=== PATIENT | female | born 1935 | race Caucasian/White ===

== ENCOUNTER 2018-01-14 14:58 | Emergency (ER) | payer MEDICARE ==
[~2018-01-14] VITALS: Ht 160 cm; Wt 64.9 kg
[~2018-01-14 14:58] MED LIST: ASPIRIN81 MG PO; ATORVASTATIN CA10 MG PO; AZO CRANBERRY1 EAC1 PO; BUPROPION XL150 MG PO; HYDROCHLOROTHIA25 MG PO; LEVOTHYROXINE125 MCG PO; LISINOPRIL10 MG PO; METOPROLOL TART25 MG PO; NIFEDIPINE ER30 M1 PO; RIVASTIGMINE TOP; SULFAMETHOXAZO1 EAC1 PO; [UNRECOGNIZED DRUG - OTHER] PO
--- NOTE | 2018-01-14 16:52 | Diagnostic Imaging Report ---
Exam: Tibia fibula, 2 views History: Lower leg pain, status post fall this morning Comparison: None. Findings: There is decreased bone mineralization, which limits evaluation of the bony structures.. No acute, displaced fracture or dislocation. Degenerative changes in the visualized knee joint, with chondrocalcinosis. Vascular calcifications. No soft tissue swelling. Impression: 1. Decreased mineralization, which limits evaluation of the bony structures. No acute, displaced fracture or dislocation, within the limitations of the study. Signed by: Dr. Christiano Lucas M.D. on 01/14/2018 4:48 PM
--- NOTE | 2018-01-14 16:54 | Diagnostic Imaging Report ---
Exam: Right foot series, 3 views. Clinical History: Status post fall, foot pain Comparison: None. Findings: 3 views of the right foot. There is markedly decreased bone mineralization, which limits evaluation of the bony structures. Acute, mildly displaced fracture of the ulnar aspect of the base of the first toe proximal phalanx, with likely intra-articular extension. Other bony structures are intact. Degenerative changes in the mid/hindfoot joints. Vascular calcifications. Soft tissue swelling in the dorsal aspect of the foot. Impression: 1. Markedly decreased bone mineralization, which limits evaluation of the bony structures. Acute, mildly displaced fracture of the ulnar aspect of the base of the first toe proximal phalanx, with likely intra-articular extension. 2. Soft tissue swelling in the dorsal aspect of the foot. Signed by: Dr. Christiano Lucas M.D. on 01/14/2018 4:51 PM
--- NOTE | 2018-01-14 16:56 | Diagnostic Imaging Report ---
Exam: Right Knee Series. History: Right knee pain status post fall Comparison: None. Findings: 3 views of the right knee. There is markedly decreased bone mineralization. Negative for acute, displaced fracture or dislocation. Degenerative changes in the right knee joint, predominantly in the medial femorotibial compartment, with linear calcification in the joint space suggesting chondrocalcinosis. Vascular calcifications. Trace suprapatellar effusion. Impression: 1. Markedly decreased bone mineralization, which limits evaluation of the bony structures. No acute, displaced fracture or dislocation. Signed by: Dr. Christiano Lucas M.D. on 01/14/2018 4:52 PM
[2018-01-14 17:08] VITALS: BP 160/70
== END 2018-01-14 17:10 | disposition home or self-care (01) ==
LOC: FSED 14:58
DX: M25.571 Pain in right ankle and joints of right foot (principal); S92.311A Displaced fracture of first metatarsal bone, right foot, initial encounter for closed fracture; S93.491A Sprain of other ligament of right ankle, initial encounter; S93.621A Sprain of tarsometatarsal ligament of right foot, initial encounter; S93.521A Sprain of metatarsophalangeal joint of right great toe, initial encounter; S90.01XA Contusion of right ankle, initial encounter; S90.31XA Contusion of right foot, initial encounter; W18.2XXA Fall in (into) shower or empty bathtub, initial encounter; Y93.E1 Activity, personal bathing and showering; Y92.002 Bathroom of unspecified non-institutional (private) residence as the place of occurrence of the external cause
CPT/HCPCS: 99283

== ENCOUNTER 2018-10-29 13:59 | Inpatient (IN) | payer MEDICARE ==
[~2018-10-29] VITALS: Ht 160 cm; Wt 64.0 kg
--- OUTSIDE RECORDS SUMMARY | 2018-10-29 14:02 | XMS REPORT ---
Author Author [facility] Address Unknown Phone Unavailable Care Team Providers Care Manager [employer] Name Role Phone Jorge Luis MCKEON Unavailable Unavailable Payers Payer Name Policy Type Policy Number Effective Date Expiration Date Problems This patient has no known problems. Allergies, Adverse Reactions, Alerts Allergy Name Allergy Type Status Severity Reaction(s) Onset Date Inactive Date Treating Clinician Comments No Known Allergies DA Active U 2018-07-26 00:00:00 No Known Allergies DA Active U 2015-05-08 00:00:00 Medications This patient has no known medications. Results Test Description Test Time Test Comments Text Results Atomic Results Result Comments - CT C-SPINE W/O CONTRAST 2018-07-26 17:00:00 Name: AGA HARVEY [facility] : 1935 Age/S: 83 / F [address] [facility] Unit #: [id number] Loc: [place] [address] Phys: Jan Bird DO Acct: [id number] Dis Date: Status: REG ER PHONE #: [phone] Exam Date: 07/26/2018 1610 FAX #: [phone] Reason: Neck Pain EXAMS: CPT CODE: [id number] CT C-SPINE W/O CONTRAST 07195 EXAM: CT of the cervical spine without contrast; INFORMATION: Status post trip and fall; neck pain; TECHNIQUE AND FINDINGS: CT dose reduction protocol; 2.5 mm axial scans; sagittal and coronal reconstructions. There is good alignment of the cervical spine. Vertebral bodies, the dens and posterior elements are intact; no evidence of fracture or dislocation. Significant narrowing of disc spaces C4-C7 with subcortical sclerosis of endplates and anterior and anterior lateral osteophyte formation. A small corticated bone cyst is seen in the lateral aspect of C2. Advanced degenerative changes of facet joints at C2/3 on the right. Paravertebral soft tissues are unremarkable. Extensive calcified plaques are seen in the proximal portion of the internal carotid arteries. IMPRESSION: 1. No evidence of acute osseous trauma. 2. Degenerative disc disease, spondylosis and facet joint arthropathy. at 1700 Reported and signed by: Nicho Cortes M.D. CC: Jan Bird DO Technologist:Tova Meyer RT(R); JAROD Lawson CTDI: DLP: Trnscb Date/Time: 07/26/2018 (1699) Karina Orig Print D/T: S: 07/26/2018 (1702) CTDI: DLP: PAGE 1 Signed Report - CT HEAD/BRAIN W/O CONT 2018-07-26 16:42:00 Name: AGA HARVEY [facility] : 1935 Age/S: 83 / F [address] [facility] Unit #: [id number] Loc: [place] [address] Phys: Jan Bird DO Acct: [id number] Dis Date: Status: REG ER PHONE #: [phone] Exam Date: 07/26/2018 1610 FAX #: [phone] Reason: HEADACHE EXAMS: CPT CODE: [id number] CT HEAD/BRAIN W/O CONT 04776 EXAM: CT of the head without contrast; INFORMATION: Headache after trip and fall, right-sided pain; TECHNIQUE AND FINDINGS: CT dose reduction protocol; 2.5 mm axial scans. There is no evidence of intra or extra-axial hemorrhage, mass lesions or midline shift. There are fairly extensive periventricular and deep white matter hypodensities. There is a small, chronic lacunar infarct laterally in the left thalamus. Ventricles are symmetric and are dilated; slightly prominent sulci and basilar cisterns. Extensive falx calcifications. There are also calcifications of the internal carotid and vertebral arteries. The calvarium is intact. Small mucoid retention cyst in the right maxillary sinus. The remainder of the sinuses and mastoid air cells are well aerated. IMPRESSION: 1. No evidence of intracranial hemorrhage or acute territorial infarction. 2. Chronic ischemic changes. 3. No evidence of skull fracture. 4. Small right maxillary retention cyst. at 1642 Reported and signed by: Nicho Cortes M.D. CC: Jan Bird DO Technologist:Tova Meyer RT(R); JAROD Lawson CTDI: DLP: Trnscb Date/Time: 07/26/2018 (1641) JoesphGRW Orig Print D/T: S: 07/26/2018 (1644) CTDI: DLP: PAGE 1 Signed Report - XR KNEE 3 V RT 2018-07-26 16:15:00 FAX: Jan Bird DO [place]: St: REG Name: AGA HARVEY [facility] : 1935 Age/S: 83/F [address] [facility] Unit #: [id number] Loc: [place] [address] Phys: Jan Bird DO Acct: [id number] Dis Date: Status: REG ER PHONE #: [phone] Exam Date: 07/26/2018 1515 FAX #: [phone] Reason: KNEE PAIN EXAMS: CPT CODE: [id number] XR KNEE 3 V RT [address]7680 EXAM: Right hip, 3 views and right knee, 3 views; INFORMATION: Trauma; pain after trip and fall; FINDINGS: Mild osteoporosis; otherwise, unremarkable shape and structure of the imaged bones; no evidence of fracture or dislocation; meniscal calcifications and narrowing of the medial compartment of the knee joint. No soft tissue abnormalities. Extensive calcifications of the abdominal aorta and iliofemoral arteries. IMPRESSION: 1. No evidence of acute osseous trauma. 2. Osteoporosis. 3. Osteoarthritis of the right knee joint. 4. No radiopaque foreign body. at 1615 Reported and signed by: Nicho Cortes M.D. CC: Jan Bird DO Technologist: Jarod GEORGE(R) Trnscrd Date/Time/By: 07/26/2018 (4214) : By: JoesphGRW Orig Print D/T: S: 07/26/2018 (8612) PAGE 1 Signed Report - XR HIP W/PEL UNI 2+V RT 2018-07-26 16:15:00 FAX: Jan Bird DO [place]: St: REG Name: AGA HARVEY [facility] : 1935 Age/S: 83/F [address] [facility] Unit #: [id number] Loc: [place] [address] Phys: Jan Bird DO Acct: [id number] Dis Date: Status: REG ER PHONE #: [phone] Exam Date: 07/26/2018 1510 FAX #: [phone] Reason: HIP PAIN EXAMS: CPT CODE: [id number] XR HIP W/PEL UNI 2+[place] RT 78901 EXAM: Right hip, 3 views and right knee, 3 views; INFORMATION: Trauma; pain after trip and fall; FINDINGS: Mild osteoporosis; otherwise, unremarkable shape and structure of the imaged bones; no evidence of fracture or dislocation; meniscal calcifications and narrowing of the medial compartment of the knee joint. No soft tissue abnormalities. Extensive calcifications of the abdominal aorta and iliofemoral arteries. IMPRESSION: 1. No evidence of acute osseous trauma. 2. Osteoporosis. 3. Osteoarthritis of the right knee joint. 4. No radiopaque foreign body. at 1615 Reported and signed by: Nicho Cortes M.D. CC: Jan Bird DO Technologist: Jarod GEORGE(R) Trnanette Date/Time/By: 07/26/2018 (492) : By: Karina Orig Print D/T: S: 07/26/2018 (7144) PAGE 1 Signed Report - XR HAND 3 + V RT 2018-07-26 16:12:00 FAX: Jan Bird DO [place]: St: REG Name: AGA HARVEY [facility] : 1935 Age/S: 83/F [address] [facility] Unit #: [id number] Loc: [place] [address] Phys: Jan Bird DO Acct: [id number] Dis Date: Status: REG ER PHONE #: [phone] Exam Date: 07/26/2018 1530 FAX #: [phone] Reason: HAND PAIN EXAMS: CPT CODE: [id number] XR HAND 3 + V RT 50096 EXAM: Right elbow, 3 views and right hand, 3 views; INFORMATION: Pain after trip and fall; FINDINGS: Mild diffuse osteoporosis; ot herwise, imaged bones are intact; no evidence of fracture or dislocation. Calcifications of the radial and ulnar arteries. No radiopaque foreign bodies. IMPRESSION: 1. No evidence of acute osseous trauma. 2. Osteoporosis. at 1612 Reported and signed by: Nicho Cortes M.D. CC: Jan Bird DO Technologist: Jarod GEORGE(R) Trnscrd Date/Time/By: 07/26/2018 (467) : By: Karina Orig Print D/T: S: 07/26/2018 (3369) PAGE 1 Signed Report - XR ELBOW 3 + V RT 2018-07-26 16:12:00 FAX: Jan Bird DO [place]: B St: REG Name: AGA HARVEY [facility] : 1935 Age/S: 83/F [address] Unit #: [id number] Loc: [place] [address] Phys: Jan Bird DO Acct: [id number] Dis Date: Status: REG ER PHONE #: [phone] Exam Date: 07/26/2018 1525 FAX #: [phone] Reason: ELBOW PAIN EXAMS: CPT CODE: [id number] XR ELBOW 3 + V RT 35372 EXAM: Right elbow, 3 views and right hand, 3 views; INFORMATION: Pain after trip and fall; FINDINGS: Mild diffuse osteoporosis; ot herwise, imaged bones are intact; no evidence of fracture or dislocation. Calcifications of the radial and ulnar arteries. No radiopaque foreign bodies. IMPRESSION: 1. No evidence of acute osseous trauma. 2. Osteoporosis. at 1612 Reported and signed by: Nicho Cortes M.D. CC: Jan Bird DO Technologist: Jarod GEORGE(R) Trnscrd Date/Time/By: 07/26/2018 (161) : By: Karina Orig Print D/T: S: 07/26/2018 (2762) PAGE 1 Signed Report - XR CHEST 1 V 2018-07-26 16:10:00 FAX: Jan Bird DO [place]: B St: REG Name: AGA HARVEY [facility] : 1935 Age/S: 83/F [address] [facility] Unit #: [id number] Loc: [place] [address] Phys: Jan Bird DO Acct: [id number] Dis Date: Status: REG ER PHONE #: [phone] Exam Date: 07/26/2018 7414 FAX #: [phone] Reason: CHEST PAIN EXAMS: CPT CODE: [id number] XR CHEST 1 V 67347 EXAM: Chest x-ray, one view; INFORMATION: Chest pain after trip and fall; FINDINGS: Lungs are clear; no evidence of pulmonary contusion, no infiltrates, no edema; no effusions, no pneumothorax. The heart is borderline in size; aortic calcifications. No evidence of acute osseous trauma. Surgical clips are seen in the left axilla. IMPRESSION: No evidence of acute traumatic changes or other significant pathology. at 1610 Reported and signed by: Nicho Cortes M.D. CC: Jan Bird DO Technologist: Jarod GEORGE(R) Trnscrd Date/Time/By: 07/26/2018 (1610) : By: JoesphGRW Orig Print D/T: S: 07/26/2018 (8173) PAGE 1 Signed Report - XR SHOULDER 2 + V RT 2018-07-26 16:08:00 FAX: Jan Bird DO [place]: B St: REG Name: AGA HARVEY [facility] : 1935 Age/S: 83/F [address] Unit #: [id number] Loc: [place] [address] Phys: Jan Bird DO Acct: [id number] Dis Date: Status: REG ER PHONE #: [phone] Exam Date: 07/26/2018 1520 FAX #: [phone] Reason: SHOULDER PAIN EXAMS: CPT CODE: [id number] XR SHOULDER 2 + V RT 08739 EXAM: Right shoulder, 3 views; INFORMATION: Trauma; shoulder pain after trip and fall; FINDINGS: Normal shape and structure of the imaged bones; no evidence of fracture or dislocation; no soft tissue abnormalities. IMPRESSION: No evidence of acute osseous trauma or other pathological changes. No radiopaque foreign body. at 1608 Repo rted and signed by: Nicho Cortes M.D. CC: Jan Bird DO Technologist: Jarod GEORGE(R) Trnscrd Date/Time/By: 07/26/2018 (2456) : By: JoesphGRW Orig Print D/T: S: 07/26/2018 (9772) PAGE 1 Signed Report KNEE 3VW RT - HOPD 2018-01-14 16:51:00 [place] [address] Patient Name: AGA HARVEY MR #: [id number] : 1935 Age/Sex: 83/F Req #: [id number] Adm Physician: Ordered by: JAROD MCKEON MD Report #: [id number] Location: [facility] Room/Bed: Procedure: HOPD/KNEE 3VW RT - HOPD Exam Date: 01/14/18 Exam Time: 1600 REPORT STATUS: Signed Exam: Right Knee Series. History: Right knee pain status post fall Comparison: None. Findings: 3 views of the right knee. There is markedly decreased bone mineralization. Negative for acute, displaced fracture or dislocation. Degenerative changes in the right knee joint, predominantly in the medial femorotibial compartment, with linear calcification in the joint space suggesting chondrocalcinosis. Vascular calcifications. Trace suprapatellar effusion. Impression: 1. Markedly decreased bone mineralization, which limits evaluation of the bony structures. No acute, displaced fracture or dislocation. Signed by: Dr. Christiano Lucas M.D. on 01/14/2018 4:52 PM Dictated By: CHRISTIANO LUCAS MD 51 Transcribed By: AMELIA on 01/14/181651 COPY TO: JAROD MCKEON MD FOOT 3 VIEW RT - HOPD 2018-01-14 16:48:00 [place] [address] Patient Name: AGA HARVEY MR #: [id number] : 1935 Age/Sex: 83/F Req #: [id number] Adm Physician: Ordered by: JAROD MCKEON MD Report #: [id number] Location: [facility] Room/Bed: Procedure: HOPD/FOOT 3 VIEW RT - HOPD Exam Date: 01/14/18 Exam Time: 1606 REPORT STATUS: Signed Exam: Right foot series, 3 views. Clinical History: Status post fall, foot pain Comparison: None. Findings: 3 views of the right foot. There is markedly decreased bone mineralization, which limits evaluation of the bony structures. Acute, mildly displaced fracture of the ulnar aspect of the base of the first toe proximal phalanx, with likely intra-articular extension. Other bony structures are intact. Degenerative changes in the mid/hindfoot joints. Vascular calcifications. Soft tissue swelling in the dorsal aspect of the foot. Impression: 1. Markedly decreased bone mineralization, which limits evaluation of the bony structures. Acute, mildly displaced fracture of the ulnar aspect of the base of the first toe proximal phalanx, with likely intra-articular extension. 2. Soft tissue swelling in the dorsal aspect of the foot. Signed by: Dr. Christiano Lucas M.D. on 01/14/2018 4:51 PM Dictated By: CHRISTIANO LUCAS MD 165 Transcribed By: AMELIA on 01/14/18 165 COPY TO: JAROD MCKEON MD TIB/FIB 2VW RT - HOPD 2018-01-14 16:47:00 [place] [address] Patient Name: AGA HARVEY MR #: [id number] : 1935 Age/Sex: 83/F Req #: [id number] Adm Physician: Ordered by: JAROD MCKEON MD Report #: [id number] Location: [facility] Room/Bed: Procedure: [id number] HOPD/TIB/FIB 2VW RT - HOPD Exam Date: 01/14/18 Exam Time: 1603 REPORT STATUS: Signed Exam: Tibia fibula, 2 views History: Lower leg pain, status post fall this morning Comparison: None. Findings: There is decreased bone mineralization, which limits evaluation of the bony structures.. No acute, displaced fracture or dislocation. Degenerative changes in the visualized knee joint, with chondrocalcinosis. Vascular calcifications. No soft tissue swelling. Impression: 1. Decreased mineralization, which limits evaluation of the bony structures. No acute, displaced fracture or dislocation, within the limitations of the study. Signed by: Dr. Christiano Lucas M.D. on 01/14/2018 4:48 PM Dictated By: CHRISTIANO LUCAS MD 1648 Transcribed By: AMELIA on 01/14/18 1648 COPY TO: JAROD MCKEON MD
--- NOTE | 2018-10-29 15:35 | Diagnostic Imaging Report ---
Examination: Single AP view of the chest. COMPARISON: None. INDICATION: Coughing for one week IMPRESSION: Exam is markedly limited by patient rotation. 1. Lines and Tubes: None 2. Lungs are well-inflated. Ill-defined airspace opacity in the right upper and lower lung, which may represent pneumonia, in the appropriate clinical setting. Recommend chest PA and lateral for further evaluation. 3. Cardiomediastinal silhouette is normal. Pulmonary vasculature is normal. 4. No acute bony abnormalities. Signed by: Dr. Christiano Lucas M.D. on 10/29/2018 3:32 PM
[2018-10-29] MEDS ORDERED: SODIUM CHLORIDE 0.9% 500ML 500 ML IV STA (15:45)
[2018-10-29] MEDS ORDERED: ACETAMINOPHEN 325 MG TAB PO PRN (16:15)
[2018-10-29] MEDS ORDERED: DIPHENHYDRAMINE HCL INJ 50 MG/ML VIAL IV PRN (16:15)
[2018-10-29] MEDS ORDERED: ASPIRIN 81 MG CHEW TAB PO ONE (16:15)
[2018-10-29] MEDS ORDERED: HYDRALAZINE HCL 20 MG/ML VIAL IV PRN (16:15)
[2018-10-29] MEDS ORDERED: ONDANSETRON HCL INJ 2MG/ML 2ML 2 MG/ML VIAL IV PRN (16:15)
[2018-10-29] MEDS ORDERED: ENOXAPARIN SOD INJ 40 MG/0.4 ML SYR SC SCH (17:00)
[2018-10-29] MEDS ORDERED: DEXTROSE 50% SYRINGE 50 ML IV PRN (17:15)
[2018-10-29] MEDS: AZITHROMYCIN 500MG/NS 250 ML 250 ML IV SCH (17:50)
[2018-10-29] MEDS: FAMOTIDINE 20 MG/2 ML VIAL IV SCH (17:52)
[2018-10-29] MEDS: IPRATROPIUM BROMIDE 0.02% 2.5 ML NEB NEB SCH ×2 (17:55→23:10)
[2018-10-29] MEDS: ALBUTEROL SULF 0.083% NEB SOLN 3 ML NEB NEB SCH ×2 (17:55→23:10)
[2018-10-29] MEDS: CLONIDINE HCL 0.1 MG TAB PO PRN (18:26)
--- NOTE | 2018-10-29 18:45 | NUR ---
IV in left AC infiltrated while infusing Azithromycin. Small amount of fluid infiltrated, IV stopped and ice bag applied to site as pt c/o burning to area. Pt had a new IV inserted to the right forearm 22G.
[2018-10-29] MEDS ORDERED: CEFTRIAXONE SOD 1 GM VIAL IV SCH (21:00)
[2018-10-29] MEDS: INSULIN REGULAR, HUMAN 100 UNIT/1 ML 3ML VIAL SQ SCH (21:00)
--- NOTE | 2018-10-29 21:00 | NUR ---
Received ER report on patient is being admitted for pneumonia. Prior to transfer, ER nurse stated the patient's BP was elevated and was given BP medication to help decrease the BP. The patient arrived on the floor at 2100 from the freestanding ER with her daughter. The patient was transferred to the bed from the stretcher. The patient is A/Ox1-2 (self and place). VS are WNP. Patient reported no pain. IV on right FA is intact and has been flushed for patency. The patient's daughter provided the patient's history and the home medications were reviewed and updated. The patient takes Lantus 10 units at night SC. RN will update the home medication and pass the report to the day shift RN. Monitor the patient for airway, breathing and BP. Turn patient every 2 hours as needed to prevent skin breakdown.
[2018-10-29 21:23] VITALS: BP 161/72
[2018-10-29 21:46] VITALS: BP 161/72
[2018-10-29] MEDS: ATORVASTATIN 10 MG TAB PO SCH (21:51)
[2018-10-29] MEDS: CEFTRIAXONE SOD 1 GM/NS 50 ML 50 ML IV SCH (21:51)
[2018-10-29] MEDS ORDERED: SODIUM CHLORIDE 0.9% 250ML 250 ML ONE (21:57)
[2018-10-29 22:05] VITALS: BP 161/72
[2018-10-29] MEDS: METRONIDAZOLE 500MG/NS 100ML 100 ML IV SCH (22:15)
[2018-10-30] VITALS (9 sets, daily range): BP systolic 100–189; BP diastolic 56–91
[2018-10-30] MEDS: ALBUTEROL SULF 0.083% NEB SOLN 3 ML NEB NEB SCH ×4 (00:03→19:31)
[2018-10-30] MEDS: IPRATROPIUM BROMIDE 0.02% 2.5 ML NEB NEB SCH ×4 (00:03→19:31)
[2018-10-30 00:37] LABS: CREATINE KINASE MB 3.5 ng/mL (0-5.0)
[2018-10-30] MEDS ORDERED: LANTUS 3ML100 UNITS/ SC (00:37)
--- NOTE | 2018-10-30 01:34 | History and Physical ---
PRIMARY CARE DOCTOR: Dr. Wade Chavez. HOSPITAL PHYSICIAN: Dr. Santino Denise. HISTORY OF PRESENT ILLNESS: Ms. Moran is a pleasant 83-year-old female with malaise. The patient is having worse altered mental status. The patient is unable to get out of bed due to weakness. She is urinating on herself. Onset of problems for the last couple of days, has been noticeably worse. The patient's daughter, whom she lives with, called EMS to bring her to emergency room. In the emergency room, blood pressure initially was 184, then noted to be 200/86. Chest x-ray showed a [id number] right-sided alveolar pneumonitis pattern. The patient with white count of 9. Creatinine 0.7. Albumin 3.2. BNP level was 473. She is hospitalized. PAST MEDICAL HISTORY: Hypertension, history of breast cancer, status post bilateral mastectomy; hysterectomy, cataract surgery, hypertension, hyperlipidemia, mild early dementia, and diabetes. MEDICATIONS: Medication list was seen, reviewed per the chart record. ALLERGIES: METFORMIN AND SULFA WERE STATED. SOCIAL HISTORY: No smoking. No drinking. No drugs. The patient was born in [place]. The patient lives in [place] since 1964. She lives at home with her daughter and her son visit her 2-3 days a week. She uses a walker and needs assistance for bathing and to prepare meals, but she can feed herself. She gets dialysis about once a week. FAMILY HISTORY: Noncontributory to this condition. REVIEW OF SYSTEMS: We cannot get review of systems, as there is mild decreased mentation and decreased hearing as well and the patient is not a good historian due to many reasons. No review of systems is available accurately. PHYSICAL EXAMINATION: VITAL SIGNS: Afebrile, vital signs stable, reviewed per the chart record. GENERAL: In no acute distress. Alert, calm, , difficulty hearing, poor attention. HEENT: Normocephalic and atraumatic. NECK: Supple. Throat midline. LUNGS: Bilateral air entry, limited, few rhonchi especially in the upper airways. CARDIOVASCULAR: S1 and S2. No murmurs, rubs, or gallops. ABDOMEN: Soft and nontender. EXTREMITIES: No clubbing. No cyanosis. There is no edema. INTEGUMENT: No rash. No purpura. LABORATORY DATA: Potassium 4.1, BUN 16, creatinine 0.7, and bicarb 29. LFTs are unremarkable with albumin 3.2. White count 9, hemoglobin 15, and platelets 190. IMPRESSION AND PLAN: 1. Abnormal chest radiography, highly asymmetric. Treat as pneumonia. 2. Abnormal chest radiography, possible pulmonary edema, asymmetric. BNP was 473. 3. Decreased ability to expectorate, treat for gram-negative pneumonia, aspiration site. 4. Poor dentition, only two remnant teeth. Cannot rule out aspiration, anaerobic organisms, treat for these. 5. Encephalopathy, metabolic. 6. Fairly mild dementia. 7. Hypertension with emergency. 8. Diabetes. 9. Hyperlipidemia. 10. History of breast cancer. 11. Baseline debility/weakness. Treat with antibiotics to include gram-negative and anaerobic coverage. Continue to enhance expectoration. Bronchodilators. Get speech therapy evaluation for the consideration of possible aspiration. If she continues to improve, we will get PT to see her the following day. Control blood pressure emergently, given by readings. Thank you very much, Dr. Wade Chavez for allowing Dr. Denise and I had the chance to participate in the care of Ms. Moran. Please call for questions. MD SEUN Allen/NANCY /[id number]
[2018-10-30] MEDS: METRONIDAZOLE 500MG/NS 100ML 100 ML IV SCH ×3 (04:59→21:35)
[2018-10-30 05:23] LABS: BASOPHILS % 0.5 % (0.0-1.0); EOSINOPHILS % 0.3 % (0.0-6.0); HEMATOCRIT 39.2 % (34.2-44.1); LYMPHOCYTES # (AUTO) 0.7 (1.0-3.2); LYMPHOCYTES % 11.1 % (18.0-39.1); MEAN CORPUSCULAR HEMOGLOBIN 29.5 pg (28-32); MEAN CORPUSCULAR HGB CONC 33.2 g/dL (31-35); MEAN CORPUSCULAR VOLUME 89.1 fL (81-99); MONOCYTES # (AUTO) 0.6 (0.2-0.8); MONOCYTES % 8.9 % (4.4-11.3); NEUTROPHILS % 78.9 % (38.7-80.0); PLATELET COUNT 128 x10e3/uL (140-360)
[2018-10-30 05:47] LABS: ANION GAP 13.2 mmol/L (8-16); BLOOD UREA NITROGEN 16 mg/dL (7-26); BUN/CREATININE RATIO 21 (6-25); CALCIUM 8.6 mg/dL (8.4-10.2); CARBON DIOXIDE 26 mmol/L (22-29); CHLORIDE 101 mmol/L (98-107); CREATININE, SERUM 0.78 mg/dL (0.57-1.11); EST GLOMERULAR FILTRATION RATE > 60 ML/MIN (60-); GLUCOSE 178 mg/dL (74-118); POTASSIUM 3.2 mmol/L (3.5-5.1); SODIUM 137 mmol/L (136-145)
[2018-10-30 06:13] LABS: ALBUMIN 2.3 g/dL (3.5-5.0); BILIRUBIN,DIRECT 0.2 mg/dL (0.0-0.5)
[2018-10-30 06:14] LABS: CREATINE KINASE MB 4.8 ng/mL (0-5.0)
--- NOTE | 2018-10-30 06:15 | Diagnostic Imaging Report ---
EXAMINATION: CHEST SINGLE (PORTABLE) COMPARISON: Chest x-ray 10/29/2018 INDICATION: Pneumonia ^pneumonia ^[id number] ^0530 DISCUSSION: Frontal view of the chest obtained at 0540 hours. HEART AND MEDIASTINUM: The cardiomediastinal silhouette is stable. LINES: None. LUNGS: Multifocal airspace opacities throughout the right lung show some improvement. There is mild left basilar atelectasis. Pulmonary vish are prominent. PLEURA: No pleural effusion or pneumothorax. BONES AND SOFT TISSUES: No focal osseous lesion. Surgical clips in the left axilla are stable. IMPRESSION: Improved right pulmonary infiltrates. Left basilar atelectasis. Prominence of the pulmonary vish may represent reactive lymphadenopathy. Signed by: Dr. Greg Barbour MD on 10/30/2018 6:12 AM
--- NOTE | 2018-10-30 07:00 | NUR ---
BEDSIDE SHIFT RECEIVED FROM THE TITLE INSURANCE AGENT RN. PT DENIES NEEDS AT THIS TIME. FAMILY AT BEDSIDE.
[2018-10-30] MEDS: INSULIN REGULAR, HUMAN 100 UNIT/1 ML 3ML VIAL SQ SCH (08:00)
[2018-10-30] MEDS: ASPIRIN 81 MG CHEW TAB PO SCH (08:19)
[2018-10-30] MEDS: LEVOTHYROXINE SODIUM 125 MCG TAB PO SCH (08:19)
[2018-10-30] MEDS: FAMOTIDINE 20 MG/2 ML VIAL IV SCH (08:27)
[2018-10-30] MEDS: CEFTRIAXONE SOD 1 GM/NS 50 ML 50 ML IV SCH (08:27)
[2018-10-30] MEDS: CARVEDILOL 3.125 MG TAB PO SCH ×3 (09:00→16:32)
--- NOTE | 2018-10-30 10:00 | NUR ---
CALLED DR. MALDONADO AND LEFT MESSAGE REGARDING MBS ORDER PER SPEECH PATHOLOGIST.
--- NOTE | 2018-10-30 10:00 | NUR ---
DR. MALDONADO AT BEDSIDE TO SEE THE PT. INFORMED PT LOW BP TO THE DR. MICHELLE TO HOLD PER THE
[2018-10-30] MEDS ORDERED: POTASSIUM CHLORIDE 20 MEQ TAB CR PO STA (10:06)
[2018-10-30] MEDS: LISINOPRIL 10 MG TAB PO SCH (11:00)
[2018-10-30] MEDS: NIFEDIPINE CR 30 MG TAB PO SCH (11:40)
[2018-10-30] MEDS: INSULIN LISPRO 100 UNIT/1 ML 3ML VIAL SQ SCH ×3 (12:30→21:00)
[2018-10-30] MEDS ORDERED: ONDANSETRON HCL 4 MG ORAL DISINTEGRATING TAB PO PRN (14:30)
[2018-10-30 14:33] LABS: CREATINE KINASE MB 6.1 ng/mL (0-5.0)
[2018-10-30] MEDS ORDERED: SODIUM CHLORIDE 0.9% 250ML 0 ML ONE (14:54)
--- NOTE | 2018-10-30 15:30 | NUR ---
Pt is confused. CM called next of kin Kimo Luisa [phone] and left VM for callback regarding discharge plan/SNF.
[2018-10-30] MEDS: LACTOBACILLUS ACIDOPHILUS CAPSULE PO SCH (16:32)
[2018-10-30] MEDS: AZITHROMYCIN 500MG/NS 250 ML 250 ML IV SCH (16:50)
--- NOTE | 2018-10-30 17:00 | NUR ---
IV in Right Fore Arm infiltrated while infusing Azithromycin. Small amount of fluid infiltrated, IV stopped and warm pack applied, hand elevated with pillows. Pt had a new IV inserted to the Left upper arm 20 G. pt family at bedside. Pt denied further needs.
--- NOTE | 2018-10-30 19:00 | NUR ---
BEDSIDE SHIFT REPORT GIVEN TO THE THERAPY ASSISTANT RN. PT DENIED FURTHER NEEDS.
[2018-10-30] MEDS ORDERED: HEPARIN SOD (PORCINE) 5,000 UNIT/ML VIAL SC SCH (21:00)
[2018-10-30] MEDS: ATORVASTATIN 10 MG TAB PO SCH (21:33)
[2018-10-30] MEDS: CLONIDINE HCL 0.1 MG TAB PO PRN (21:35)
[2018-10-31] VITALS (9 sets, daily range): BP systolic 115–194; BP diastolic 53–80
[2018-10-31] MEDS: METRONIDAZOLE 500MG/NS 100ML 100 ML IV SCH (06:08)
[2018-10-31] MEDS: ALBUTEROL SULF 0.083% NEB SOLN 3 ML NEB NEB SCH (07:00)
[2018-10-31] MEDS: IPRATROPIUM BROMIDE 0.02% 2.5 ML NEB NEB SCH ×3 (07:00→19:50)
--- NOTE | 2018-10-31 07:00 | NUR ---
BEDSIDE SHIFT REPORT RECEIVED FROM THE GEOMORPHOLOGY TEACHER RN. PT DENIES NEEDS AT THIS TIME.
--- NOTE | 2018-10-31 07:07 | NUR ---
REPORT GIVEN TO ONCOMING NURSE.WALKING ROUNDS MADE.PT RESTING IN BED WITH NO S/S OF DISTRESS.
[2018-10-31] MEDS: INSULIN LISPRO 100 UNIT/1 ML 3ML VIAL SQ SCH ×4 (07:30→21:17)
[2018-10-31] MEDS: CARVEDILOL 3.125 MG TAB PO SCH ×2 (08:07→17:30)
[2018-10-31] MEDS: ASPIRIN 81 MG CHEW TAB PO SCH (08:08)
[2018-10-31] MEDS: LACTOBACILLUS ACIDOPHILUS CAPSULE PO SCH ×2 (08:08→17:30)
[2018-10-31] MEDS: LISINOPRIL 10 MG TAB PO SCH ×2 (08:08→17:30)
[2018-10-31] MEDS: NIFEDIPINE CR 30 MG TAB PO SCH ×2 (08:09→17:30)
[2018-10-31] MEDS: LEVOTHYROXINE SODIUM 125 MCG TAB PO SCH (08:09)
[2018-10-31] MEDS ORDERED: CEFTRIAXONE SOD 1 GM/NS 50 ML 50 ML IV SCH (09:00)
[2018-10-31] MEDS ORDERED: LISINOPRIL 10 MG TAB PO SCH (09:00)
[2018-10-31] MEDS ORDERED: NIFEDIPINE CR 30 MG TAB PO SCH (09:00)
[2018-10-31] MEDS ORDERED: LEVOFLOXACIN 500 MG TAB PO SCH (09:15)
--- NOTE | 2018-10-31 09:25 | NUR ---
Referral for SNF faxed to [facility] [address] [place] [address] P F [phone] RTF initiated and placed with pt's packet at nurse's station.
[2018-10-31] MEDS: BUPROPION HCL 100 MG TAB PO SCH (10:44)
--- NOTE | 2018-10-31 19:00 | NUR ---
BEDSIDE SHIFT REPORT GIVEN TO THE DISPOSAL PLANT OPERATOR RN. PT DENIED FURTHER NEEDS.
[2018-10-31] MEDS: ALBUTEROL SULF 0.083% NEB SOLN 3 ML NEB NEB PRN (19:50)
[2018-10-31] MEDS: ATORVASTATIN 10 MG TAB PO SCH (20:14)
[2018-11-01] VITALS (8 sets, daily range): BP systolic 115–144; BP diastolic 51–65
[2018-11-01] MEDS: INSULIN LISPRO 100 UNIT/1 ML 3ML VIAL SQ SCH ×3 (07:30→17:03)
[2018-11-01] MEDS: IPRATROPIUM BROMIDE 0.02% 2.5 ML NEB NEB SCH ×2 (07:33→14:15)
[2018-11-01] MEDS: ALBUTEROL SULF 0.083% NEB SOLN 3 ML NEB NEB PRN ×2 (07:33→14:15)
[2018-11-01] MEDS: LACTOBACILLUS ACIDOPHILUS CAPSULE PO SCH ×2 (08:56→17:03)
[2018-11-01] MEDS: ASPIRIN 81 MG CHEW TAB PO SCH (08:56)
[2018-11-01] MEDS: CARVEDILOL 3.125 MG TAB PO SCH ×2 (08:56→17:03)
[2018-11-01] MEDS: NIFEDIPINE CR 30 MG TAB PO SCH ×2 (08:56→17:03)
[2018-11-01] MEDS: LEVOTHYROXINE SODIUM 125 MCG TAB PO SCH (08:56)
[2018-11-01] MEDS: LISINOPRIL 10 MG TAB PO SCH ×2 (08:56→17:03)
[2018-11-01] MEDS: BUPROPION HCL 100 MG TAB PO SCH (08:56)
[2018-11-01] MEDS ORDERED: SODIUM CHLORIDE 0.9% 250ML 250 ML ONE (09:11)
[2018-11-01] MEDS ORDERED: LEVOFLOXACIN 500MG/D5W 100ML 100 ML IV SCH (09:15)
--- NOTE | 2018-11-01 12:53 | NUR ---
Still pending insurance auth for SNF. Dr. Denise states he will contact [facility].
--- NOTE | 2018-11-01 13:05 | NUR ---
IMM letter delivered and explained to pt's daughter Kimo Moran. She verbalized understanding. Signed copy placed in chart. Copy to pt's daughter. Ms. Moran stated that she just came from [facility] and was told they are still pending insurance authorization.
--- NOTE | 2018-11-01 17:00 | NUR ---
Received MOT from Basia Hidalgo with [facility] [address] [place], [place] [id number] [address] Dr. Vaz to attend Admin: Agustina Lozano RTF completed and placed with pt's packet at nurses station. LAURA Maloney was notified of bed assignment.
--- NOTE | 2018-11-01 18:08 | Discharge Summary ---
PRIMARY CARE DOCTOR: Dr. Valerie Weeks. FINAL DIAGNOSIS: Pneumonia. SECONDARY DIAGNOSES: 1. Debility. 2. Diabetes. 3. Uncontrolled hypertension, better. 4. Dementia. 5. Mild thrombocytopenia. CONSULTANTS: None. PROCEDURES/STUDIES PERFORMED: Modified barium swallow study. HISTORY: Per [facility] and [facility]. HOSPITAL COURSE: The patient responded to antibiotics. However, the patient is too debilitated to go home. Therefore, she will be going to [facility] for skilled PT. The patient will finish her antibiotics over there. Initially, there was suspicion for modified barium for aspiration. Therefore, a modified barium swallow study was done, which she passed. The patient's Procardia, lisinopril and Coreg were increased. Now, her blood pressure is better. The patient was seen and examined today. It took 32 minutes total to discharge this patient. I have updated her primary care doctor about this hospitalization. CONDITION ON DISCHARGE: Improved. DISCHARGE MEDICATIONS: Please see medication reconciliation form. MD DIRK Hunter/NANCY /[id number] cc: [facility]
--- NOTE | 2018-11-01 19:36 | NUR ---
Received change of shift report from AM nurse. Round completed.
--- NOTE | 2018-11-01 21:16 | NUR ---
Patient D/C to SNF.
[2018-11-02] MEDS ORDERED: LEVOTHYROXINE SODIUM 125 MCG TAB PO SCH (06:00)
--- NOTE | 2018-11-07 10:19 | Diagnostic Imaging Report ---
PROCEDURE:X-RAY MODIFIED BARIUM SWALLOW COMPARISON:None. INDICATIONS:Pneumonia DISCUSSION:Fluoroscopic examination was performed in conjunction with Speech Pathology, during swallowing of a variety of thin and thick liquid consistencies. Fluoroscopy time: 2.0 minutes Cumulative dose: 6.31 mGy CONCLUSION:No penetration or aspiration. Please see the report from Speech Pathology for complete details. Markus Duncan D.O. Dictated by: Markus Duncan D.O. on 10/31/2018 at 7:41 Electronically approved by: Markus Duncan D.O. on 10/31/2018 at 7:41
== END 2018-11-01 21:13 | DRG 177 ==
LOC: FSED 13:59 → ERHOLD 16:13 → MED/SURG2 21:03
PROVIDERS: ADMIT Internal Medicine; ATTEND Internal Medicine
DX: J15.6 Pneumonia due to other Gram-negative bacteria (principal); G93.41 Metabolic encephalopathy; I16.1 Hypertensive emergency; I11.0 Hypertensive heart disease with heart failure; I50.9 Heart failure, unspecified; F03.90 Unspecified dementia, unspecified severity, without behavioral disturbance, psychotic disturbance, mood disturbance, and anxiety; E11.9 Type 2 diabetes mellitus without complications; E78.5 Hyperlipidemia, unspecified; Z85.3 Personal history of malignant neoplasm of breast; E87.6 Hypokalemia
CPT/HCPCS: 36415; 71045; 74230; 80048; 80053; 80076; 82550; 82553; 82948; 83880; 84484; 85025; 87040; 87086; 93005; 93306; 94640; 96372; 96374; 97139; 99284; J0360; J0456; J0696; J1200; J1644; J1650; J1817; J1956; J2405; J7040; J7050

== ENCOUNTER 2018-12-09 21:17 | Emergency (ER) | payer MEDICARE ==
[~2018-12-09] VITALS: Ht 160 cm; Wt 64.0 kg
[~2018-12-09 21:17] MED LIST changes: +LANTUS 3ML100 UNITS/ SC
[2018-12-09 22:26] LABS: BASOPHILS % 0.4 % (0.0-1.0); EOSINOPHILS # (AUTO) 0.2 (0.0-0.4); EOSINOPHILS % 3.1 % (0.0-6.0); HEMATOCRIT 40.3 % (34.2-44.1); HEMOGLOBIN 13.7 g/dL (12.0-16.0); LYMPHOCYTES % 29.1 % (18.0-39.1); MEAN CORPUSCULAR HEMOGLOBIN 30.7 pg (28-32); MEAN CORPUSCULAR VOLUME 90.4 fL (81-99); MONOCYTES # (AUTO) 0.7 (0.2-0.8); MONOCYTES % 10.4 % (4.4-11.3); NEUTROPHILS # (AUTO) 3.9 (2.1-6.9); NEUTROPHILS % 56.9 % (38.7-80.0); PLATELET COUNT 202 x10e3/uL (140-360); RED BLOOD COUNT 4.46 x10e6/uL (3.6-5.1); RED CELL DISTRIBUTION WIDTH 13.5 % (11.7-14.4)
[2018-12-09 23:05] VITALS: BP 174/55
== END 2018-12-09 23:18 | disposition home or self-care (01) ==
LOC: ER 21:17
DX: R19.7 Diarrhea, unspecified (principal)
CPT/HCPCS: 36415; 82270; 85025; 99283

== ENCOUNTER 2019-03-04 11:53 | Emergency (ER) | payer MEDICARE ==
[~2019-03-04] VITALS: Ht 160 cm; Wt 64.0 kg
[2019-03-04] MEDS ORDERED: SODIUM CHLORIDE 0.9% 500ML 500 ML IV ONE (13:15)
[2019-03-04 13:55] LABS: BASOPHILS % 0.5 % (0.0-1.0); EOSINOPHILS # (AUTO) 0.2 (0.0-0.4); EOSINOPHILS % 2.4 % (0.0-6.0); HEMATOCRIT 45.5 % (34.2-44.1); HEMOGLOBIN 15.2 g/dL (12.0-16.0); LYMPHOCYTES # (AUTO) 1.9 (1.0-3.2); LYMPHOCYTES % 30.1 % (18.0-39.1); MEAN CORPUSCULAR HEMOGLOBIN 29.8 pg (28-32); MEAN CORPUSCULAR HGB CONC 33.4 g/dL (31-35); MEAN CORPUSCULAR VOLUME 89.2 fL (81-99); MONOCYTES # (AUTO) 0.6 (0.2-0.8); MONOCYTES % 9.6 % (4.4-11.3); NEUTROPHILS # (AUTO) 3.6 (2.1-6.9); NEUTROPHILS % 57.2 % (38.7-80.0); PLATELET COUNT 195 x10e3/uL (140-360); RED CELL DISTRIBUTION WIDTH 13.5 % (11.7-14.4)
[2019-03-04 13:56] LABS: BILIRUBIN,URINE NEGATIVE (NEGATIVE); CLARITY,URINE SL CLOUDY (CLEAR); COLOR,URINE YELLOW (YELLOW); KETONES,URINE NEGATIVE (NEGATIVE); LEUKOCYTE ESTERASE ,URINE NEGATIVE (NEGATIVE); NITRITE,URINE NEGATIVE (NEGATIVE); PROTEIN,URINE DIPSTICK NEGATIVE (NEGATIVE); URINE UROBILINOGEN 0.2 mg/dL (0.2 - 1)
[2019-03-04] MEDS ORDERED: QUETIAPINE FUMARATE 25 MG TAB PO ONE (14:00)
[2019-03-04 14:01] LABS: BACTERIA,URINE MANY /HPF; EPITHELIAL CELLS,URINE FEW /LPF; MUCUS,URINE FEW (RARE); RBC,URINE 0-5 /HPF (0-5)
[2019-03-04 14:06] LABS: INR 0.89; PARTIAL THROMBOPLASTIN TIME 29.7 seconds (23.8-35.5); PROTHROMBIN TIME 12.5 seconds (11.9-14.5)
[2019-03-04 14:13] LABS: ALANINE AMINOTRANSFERASE 17 IU/L (0-55); ALBUMIN 3.3 g/dL (3.5-5.0); ALBUMIN/GLOBULIN RATIO 0.9 (0.8-2.0); ALKALINE PHOSPHATASE 100 IU/L (40-150); ANION GAP 14.8 mmol/L (8-16); BLOOD UREA NITROGEN 24 mg/dL (7-26); BUN/CREATININE RATIO 35 (6-25); CALCIUM 9.1 mg/dL (8.4-10.2); CARBON DIOXIDE 26 mmol/L (22-29); CHLORIDE 106 mmol/L (98-107); CREATINE KINASE 65 IU/L (29-168); CREATININE, SERUM 0.69 mg/dL (0.57-1.11); EST GLOMERULAR FILTRATION RATE > 60 ML/MIN (60-); GLUCOSE 112 mg/dL (74-118); POTASSIUM 3.8 mmol/L (3.5-5.1); SODIUM 143 mmol/L (136-145)
--- NOTE | 2019-03-04 14:38 | Diagnostic Imaging Report ---
History:Altered mental status Comparison studies: None Technique: Axial images were obtained from the skull base to the vertex. Coronal and sagittal images reconstructed from the axial data. Dose modulation, iterative reconstruction, and/or weight based adjustment of the mA/kV was utilized to reduce the radiation dose to as low as reasonably achievable. Intravenous contrast: None Findings: Scalp/skull: No abnormalities. Extra-axial spaces: No masses. No fluid collections. Brain sulci: Moderately prominent. Ventricles: Moderate compensatory dilatation. No hydrocephalus. Parenchyma: Ill-defined hypodensities in the supratentorial white matter are small vessel ischemic changes. No masses, hemorrhage, acute or chronic cortical vascular insults. Sellar/suprasellar region: No abnormalities. Craniocervical junction: Patent foramen magnum. No Chiari one malformation. Incidental findings: Atherosclerotic calcifications in the carotid siphons . Impression: No acute abnormalities. Chronic findings: 1. Moderate generalized volume loss. 2. Moderate supratentorial white matter small vessel ischemic changes. Signed by: Dr. Charbel Thomas M.D. on 03/04/2019 2:35 PM
--- NOTE | 2019-03-04 14:44 | Diagnostic Imaging Report ---
EXAMINATION: CHEST SINGLE (PORTABLE) INDICATION: ^AMS COMPARISON: Chest radiograph 10/30/2018 FINDINGS: AP view TUBES and LINES: None. LUNGS: Lungs are well inflated. Lungs are clear. There is no evidence of pneumonia or pulmonary edema. Interval resolution of the previously noted, right greater than left, reticular opacities. PLEURA: No pleural effusion or pneumothorax. HEART AND MEDIASTINUM: The cardiomediastinal silhouette is unremarkable.. BONES AND SOFT TISSUES: No acute osseous lesion. Soft tissues are unremarkable. UPPER ABDOMEN: No free air under the diaphragm. IMPRESSION: No acute thoracic abnormality. Signed by: Dr. Deyanira Neil M.D. on 03/04/2019 2:41 PM
[2019-03-04] MEDS ORDERED: CEFTRIAXONE SOD 1 GM/NS 50 ML 50 ML IV ONE (15:00)
[2019-03-04 16:34] VITALS: BP 163/61
== END 2019-03-04 16:35 | disposition home or self-care (01) ==
LOC: ER 11:53
DX: R41.82 Altered mental status, unspecified (principal); N30.90 Cystitis, unspecified without hematuria; F03.90 Unspecified dementia, unspecified severity, without behavioral disturbance, psychotic disturbance, mood disturbance, and anxiety; I10 Essential (primary) hypertension; E11.9 Type 2 diabetes mellitus without complications; E78.5 Hyperlipidemia, unspecified; E03.9 Hypothyroidism, unspecified; H91.90 Unspecified hearing loss, unspecified ear
CPT/HCPCS: 36415; 70450; 71045; 80053; 81001; 82550; 82553; 84484; 85025; 85610; 85730; 87086; 87186; 93005; 99284; J0696; J7040

== ENCOUNTER 2019-03-18 16:50 | Observation (INO) | payer MEDICARE ==
[~2019-03-18] VITALS: Ht 160 cm; Wt 61.2 kg
--- NOTE | 2019-03-18 16:55 | NUR ---
PT IN BATHROOM WITH FAMILY
[2019-03-18] MEDS ORDERED: SODIUM CHLORIDE 0.9% 1000ML 1,000 ML IV ONE (17:45)
[2019-03-18] MEDS ORDERED: PROTONIX 200MG/SODIUM CHLORIDE 0.9% 250 ML BAG IV SCH (17:45)
[2019-03-18] MEDS ORDERED: SODIUM CHLORIDE 0.9% 1000ML 1,000 ML ONE (17:57)
[2019-03-18] MEDS ORDERED: PANTOPRAZOLE 40 MG 10ML VIAL ONE (17:57)
--- NOTE | 2019-03-18 18:05 | Diagnostic Imaging Report ---
EXAMINATION: CXR 1 VIEW - HOPD COMPARISON: Chest x-ray 03/04/2019 INDICATION: Altered level of consciousness, GI bleed ^[id number] ^1757 DISCUSSION: Frontal view of the chest obtained at 1852 hours. HEART AND MEDIASTINUM: The cardiomediastinal silhouette is unremarkable. LINES: None. LUNGS: The lungs are well inflated and clear. No pneumonia or pulmonary edema. PLEURA: No pleural effusion or pneumothorax. BONES AND SOFT TISSUES: Mild degenerative changes of the AC joint and spine. No focal osseous lesion. Surgical clips in the left axilla are stable. IMPRESSION: No acute cardiopulmonary disease. Signed by: Dr. Greg Barbour MD on 03/18/2019 6:02 PM
[2019-03-18] MEDS ORDERED: PANTOPRAZOLE 40 MG 10ML VIAL IV STA (18:10)
[2019-03-18] MEDS ORDERED: PANTOPRAZOL 40MG/SOD CHL 0.9% 50 ML IV SCH (18:30)
--- NOTE | 2019-03-18 18:50 | Diagnostic Imaging Report ---
CT Abdomen and Pelvis without contrast INDICATION: Altered level of consciousness, GI bleed, lower abdominal pain, ^[id number] ^1821 TECHNIQUE: Thin collimation axial images obtained from the diaphragm to the level of the pubic symphysis without nonionic intravenous contrast. Dose reduction techniques used: Automated exposure control, adjustment of the mAs and/or kVp according to patient size, standardized low-dose protocol, and/or iterative reconstruction technique. RADIATION DOSE: Total DLP: 620.3 mGy*cm Estimated effective dose: (DLP x 0.015 x size factor) mSv CTDIvol has been reviewed. It is below the limits set by the Radiation Protocol Committee (RPC). COMPARISON: None. ABDOMEN FINDINGS: Lung Bases: Clear. The heart is normal in size with heavy calcified mitral valve, coronary arteries, and aorta Liver: Normal in attenuation without mass. Gallbladder: Present and contains tiny dependent calcified gallstones. No ductal dilatation. Pancreas: Diffusely trophic. No mass or ductal dilatation. Spleen: Normal size without mass. Adrenal Glands: Thickening of the lateral limb of the right adrenal gland. Diffuse thickening of the left adrenal gland. A discrete nodule is not visible. Kidneys: Right: No renal calculus. No cortical mass or hydronephrosis Left: No renal calculus. No cortical mass or hydronephrosis Lymph Nodes: No lymphadenopathy. Aorta: Normal in diameter with diffuse calcifications PELVIS FINDINGS: Bowel: Stomach: Normal. Small Bowel: Normal in caliber with normal wall thickness. Large Bowel: Diverticulosis coli. No associated inflammation. No significant stool burden. The descending colon is collapsed with suggestion of mural thickening. No significant pericolonic inflammation. Appendix: Normal. Bladder: Normal. Ureters: No ureteral dilatation or calculus. The uterus is absent. No adnexal mass. No free fluid or fluid collection.. Bones: Moderate degenerative changes of the spine. There is mild height loss of the T12 and L1 vertebral bodies with superior endplate Schmorl's nodes. There is grade 1 anterolisthesis of L4 on L5 without pars defects. Soft tissues: Unremarkable. IMPRESSION: 1. Compromised examination given the lack of intravenous and enteric contrast. 2. Collapsed descending colon with suggestion of mural thickening. Colitis cannot be excluded. Mild burden of diverticulitis coli. No bowel obstruction. 3. Cholelithiasis. 4. Atherosclerosis. Heavy calcifications of the mitral valve. Signed by: Dr. Greg Barbour MD on 03/18/2019 6:46 PM
[2019-03-18] MEDS ORDERED: SODIUM CHLORIDE 0.9% 1000ML 1,000 ML IV SCH (19:01)
--- NOTE | 2019-03-18 19:14 | NUR ---
PTS DIAPER CHANGED PER FAMILY REQUEST. NO SKIN BREAK DOWN NOTED. [facility] NOTIFIED OF TRANSFER ETA 30-45 MINUTES
[2019-03-18] MEDS ORDERED: ONDANSETRON HCL INJ 2MG/ML 2ML 2 MG/ML VIAL IV PRN (19:15)
[2019-03-18] MEDS ORDERED: DEXTROSE 50% SYRINGE 50 ML IV PRN (19:15)
[2019-03-18] MEDS ORDERED: LEVOFLOXACIN 500MG/D5W 100ML IV SCH (19:15)
[2019-03-18] MEDS ORDERED: METRONIDAZOLE 500MG/NS 100ML 100 ML IV ONE (19:20)
--- NOTE | 2019-03-18 19:22 | NUR ---
DR SIERRA AT BEDSIDE
[2019-03-18] MEDS ORDERED: LEVOFLOXACIN 500MG/D5W 100ML 100 ML IV SCH (19:30)
--- NOTE | 2019-03-18 20:20 | NUR ---
Admitted to room 284 via stretcher from home with dtr. Alert and orient to name, disoriented to time, date, and diagnosis: colitis, mild dehydration. Pt has mod rectal bleeding, positive guaiac. CDiff toxin ordered. Unsteady ambulation with walker x1 assist. c/o mod lower abdominal with facial grimacing and grasping site, repositioned and applied warm compress. 20gIV left AC running 100mls/hr. continent B/B, with urinary urgency. Sacral redness. No edema. Cap refill <3 secs. Oriented to call light. Bed low and locked with bed alarm.
[2019-03-18] MEDS ORDERED: QUETIAPINE FUMARATE 25 MG TAB PO PRN (20:30)
[2019-03-18] MEDS ORDERED: ZIPRASIDONE 20 MG VIAL IM PRN (20:30)
[2019-03-18 20:54] VITALS: BP 182/78
[2019-03-18 20:58] VITALS: BP 182/78
[2019-03-18] MEDS ORDERED: METRONIDAZOLE 500MG/NS 100ML 100 ML IV SCH (21:00)
[2019-03-18] MEDS ORDERED: INSULIN REGULAR, HUMAN 100 UNIT/1 ML 3ML VIAL SQ SCH (21:00)
--- NOTE | 2019-03-18 21:38 | History and Physical ---
PRIMARY CARE DOCTOR: Dr. Valerie Weeks. CHIEF COMPLAINT: Vomiting, diarrhea, and abdominal pain. HISTORY OF PRESENT ILLNESS: This is an 84-year-old woman with significant hard of hearing and dementia, could not really give any history, history is provided by the daughter who is at the bedside she lives with. The patient was in her usual state of health until this afternoon and after drinking some pomegranate juice, the patient complained of left lower abdominal pain. The patient also vomited and also had diarrhea. Otherwise, denies fever or chills. No chest pain or shortness of breath. The daughter also had the same pomegranate juice and she has been fine. It looks like the patient was diagnosed with UTI about 2 weeks ago. The patient recently just finished p.o. antibiotics for that. The patient has not had any vomiting or diarrhea recently. The patient also had diaphoresis and maybe just a little bit of cough. PAST MEDICAL AND SURGICAL HISTORY: 1. Breast cancer. 2. Diabetes. 3. Hypertension. 4. Dyslipidemia. 5. Previous bilateral mastectomy. 6. Dementia with occasional agitation. MEDICATIONS: Please see medication reconciliation form. ALLERGIES: TO SULFA, METFORMIN, AND TRAMADOL. SOCIAL HISTORY: Does not smoke. FAMILY HISTORY: Diabetes. REVIEW OF SYSTEMS: Unable to obtain due to her dementia. PHYSICAL EXAMINATION: VITAL SIGNS: Temperature 98.4, pulse 78, blood pressure 169/79, respiratory rate 18. GENERAL: No acute distress. SKIN: No rash. HEENT: Oropharynx is clear. Anicteric. NECK: Supple. LUNGS: Clear. HEART: Regular rate and rhythm. Normal S1 and S2. ABDOMEN: Soft, nondistended, nontender. Normoactive bowel sounds. : Deferred. MUSCULOSKELETAL: Painless range of motion. NEUROLOGIC: Alert, but disoriented. Cranial nerves grossly intact. PSYCHIATRIC: Currently, she is calm. LABORATORY DATA: Laboratory quijano, lactic acid is 2.2. White count is 11. CT shows possible colitis and also gallstones. ASSESSMENT AND PLAN: 1. Abdominal pain, vomiting, and diarrhea. Given the fact that the patient recently just had antibiotics, we will need to see that empirically we will put the patient on IV Levaquin and Flagyl. We will also put her on oral vancomycin as well. Currently, she has asymptomatic cholelithiasis. At this time, we will keep her on clear liquid diet with IV fluid. We will continue to monitor. 2. Dementia with agitation. I will use Seroquel as needed. 3. Diabetes, for which she is sliding scale for now since she is only on clear liquid diet. 4. Uncontrolled hypertension. We will restart her nifedipine and beta-zachariah. She will have oral clonidine as needed as well. 5. Gastrointestinal and deep venous thrombosis prophylaxis, we will hold off on chemical at this time as we know for sure she has infection or this is going to be a prolonged hospitalization. I have updated 2 daughters at the bedside and I also have updated her primary care doctor. Aiyanaching MD DIRK Dubon/NANCY /[id number] cc: [facility]
[2019-03-18] MEDS: ATORVASTATIN 10 MG TAB PO SCH (22:27)
[2019-03-18] MEDS: INSULIN LISPRO 100 UNIT/1 ML 3ML VIAL SQ SCH (22:27)
[2019-03-18] MEDS: CLONIDINE HCL 0.1 MG TAB PO PRN (23:55)
[2019-03-19] VITALS (8 sets, daily range): BP systolic 126–210; BP diastolic 60–91
[2019-03-19] MEDS ORDERED: METRONIDAZOLE 500MG/NS 100ML IV SCH
[2019-03-19] MEDS: VANCOMYCIN 250MG/5ML ORAL SOLN PO SCH ×3 (00:40→12:43)
[2019-03-19] MEDS: NIFEDIPINE CR 30 MG TAB PO SCH (04:10)
--- NOTE | 2019-03-19 04:13 | NUR ---
Spoke with Dr. Denise regarding abnormal lactic acid 3.4 and elevated BP after clonidine admin, 178/, ordered to give [address] Denise also informed of moderate rectal bleeding. Informed to monitor Pt and inform him of any changes in Pt health condition. No further orders. Pt 20g IV right AC running NS @100mls/hr. No active distress noted. Will continue to monitor.
[2019-03-19 05:36] LABS: BASOPHILS % 0.2 % (0.0-1.0); HEMATOCRIT 43.7 % (34.2-44.1); HEMOGLOBIN 14.6 g/dL (12.0-16.0); LYMPHOCYTES # (AUTO) 0.8 (1.0-3.2); LYMPHOCYTES % 7.9 % (18.0-39.1); MEAN CORPUSCULAR HEMOGLOBIN 29.9 pg (28-32); MEAN CORPUSCULAR HGB CONC 33.4 g/dL (31-35); MEAN CORPUSCULAR VOLUME 89.4 fL (81-99); MONOCYTES # (AUTO) 0.6 (0.2-0.8); MONOCYTES % 5.9 % (4.4-11.3); NEUTROPHILS # (AUTO) 8.8 (2.1-6.9); NEUTROPHILS % 85.8 % (38.7-80.0); PLATELET COUNT 190 x10e3/uL (140-360); RED BLOOD COUNT 4.89 x10e6/uL (3.6-5.1); RED CELL DISTRIBUTION WIDTH 13.5 % (11.7-14.4)
[2019-03-19 05:58] LABS: AMYLASE 60 U/L (25-125); ANION GAP 14.7 mmol/L (8-16); BLOOD UREA NITROGEN 18 mg/dL (7-26); BUN/CREATININE RATIO 26 (6-25); CALCIUM 8.9 mg/dL (8.4-10.2); CARBON DIOXIDE 24 mmol/L (22-29); CHLORIDE 104 mmol/L (98-107); CREATININE, SERUM 0.69 mg/dL (0.57-1.11); EST GLOMERULAR FILTRATION RATE > 60 ML/MIN (60-); GLUCOSE 190 mg/dL (74-118); POTASSIUM 3.7 mmol/L (3.5-5.1); SODIUM 139 mmol/L (136-145)
[2019-03-19 05:59] LABS: LIPASE < 4 U/L (8-78)
[2019-03-19] MEDS: METRONIDAZOLE 500MG/NS 100ML 100 ML IV SCH ×3 (06:00→21:18)
[2019-03-19] MEDS: LEVOTHYROXINE SODIUM 125 MCG TAB PO SCH (06:00)
--- NOTE | 2019-03-19 07:00 | NUR ---
Bedside report given to morning nurse. Pt lying in bed HOB 30, alert to and orient to name call. Family at bedside. No acute distress noted. Bed low and locked.
--- NOTE | 2019-03-19 07:12 | NUR ---
PATIENT IN BED RESTING WITH NO RESPIRATORY DISTRESS. DENIED PAIN AT THIS TIME. TELEMETRY BOX IN PLACE BED IN LOWER POSITION, CALL LIGHT AT REACH.
[2019-03-19] MEDS: INSULIN LISPRO 100 UNIT/1 ML 3ML VIAL SQ SCH ×4 (07:30→21:18)
[2019-03-19] MEDS: CLONIDINE HCL 0.1 MG TAB PO PRN ×2 (08:05→21:33)
[2019-03-19] MEDS: METOPROLOL TARTRATE 25 MG TAB PO SCH ×2 (09:53→17:23)
[2019-03-19] MEDS: BUPROPION HCL 150 MG TABCR PO SCH (09:53)
[2019-03-19] MEDS: ASPIRIN 81 MG CHEW TAB PO SCH (09:53)
--- NOTE | 2019-03-19 11:58 | NUR ---
PATIENT SITTING AT BED SIDE EATING LUNCH ASSISTED BY HER DAUGHTER. NO DIFFICULTY SWALLOWING OBSERVED. CALL LIGHT AT REACH.
--- NOTE | 2019-03-19 14:50 | NUR ---
PATIENT AMBULATED IN ROOM WITH PHYSICAL THERAPY. BACK IN BED WITH CALL LIGHT AT REACH.
--- NOTE | 2019-03-19 15:59 | NUR ---
PATIENT NOTED WITH BLOOD SUGAR OF 41. NO S/S OF HYPOGLYCEMIA NOTED. ALERT AND VERBALLY RESPONSIVE. DENIED ANY DIZZINESS. ORANGE JUICE OFFERED AND WELL TOLERATED. BLOOD SUGAR RECHECKED WITH THE READING OF 113. WILL CLOSELY MONITOR.
--- NOTE | 2019-03-19 17:16 | NUR ---
Nutrition Screen Note RD Recommendation for Physician: -Advance to GI soft diet when medically appropriate Plan of Care: RD following, monitoring for tolerance and adequacy Nutrition reason for involvement: MST Primary Diagnose(s): colitis and mild dehydration PMH: breast cancer, diabetes, HTN, dyslipidemia, bilateral mastectomy Ht: 63 in Wt: 135lb BMI: 23.9 kg/m2 IBW: [address] Assessment: (03/19/19) Chart reviewed. Labs and meds reviewed. Spoke to pt and family member at bedside. Pt consumed 25% of liquids today per chart. Prior to admission, family member reported pt was eating all of her meals. Family member also stated that pt usually weighs 140 lbs. Pt currently has a wt of 135 lbs in chart. Pt has N/V as well as diarrhea this morning per family member. It is also noted that pt has a stage 1 pressure ulcer to sacrum. Will continue to monitor. Current Diet: Clear Liquid Diet Malnutrition Evaluation (03/19/19) The patient does not meet criteria for a specified degree of malnutrition at this time. Will re-evaluate at follow-up as appropriate. Diet Education Needs Assessment: Diet education not indicated, pt is on a temporary diet Nutrition Care Level: Low Signed: Radha Clark, RD, LD
--- NOTE | 2019-03-19 19:11 | NUR ---
PT IS RESTING IN BED. RESPIRATION IS EVEN AND UNLABORED, NO DISTRESS NOTED. BED IN THE LOWEST POSITION, LOCKED, BED ALARM ON, AND CALL LIGHT WITHIN REACH. WILL CONTINUE TO MONITOR.
[2019-03-19] MEDS: ATORVASTATIN 10 MG TAB PO SCH (21:18)
[2019-03-20] VITALS: BP 127/62
[2019-03-20 04:00] VITALS: BP 194/82
[2019-03-20] MEDS: CLONIDINE HCL 0.1 MG TAB PO PRN (05:46)
[2019-03-20] MEDS: METRONIDAZOLE 500MG/NS 100ML 100 ML IV SCH ×2 (05:46→13:11)
[2019-03-20] MEDS: LEVOTHYROXINE SODIUM 125 MCG TAB PO SCH (05:46)
[2019-03-20] MEDS: INSULIN LISPRO 100 UNIT/1 ML 3ML VIAL SQ SCH ×2 (07:30→12:05)
[2019-03-20] MEDS: ASPIRIN 81 MG CHEW TAB PO SCH (07:57)
[2019-03-20 07:58] VITALS: BP 129/59
[2019-03-20] MEDS: BUPROPION HCL 150 MG TABCR PO SCH (07:58)
[2019-03-20] MEDS: NIFEDIPINE CR 30 MG TAB PO SCH (07:58)
[2019-03-20] MEDS: METOPROLOL TARTRATE 25 MG TAB PO SCH (07:58)
[2019-03-20 08:05] VITALS: BP 129/59
--- NOTE | 2019-03-20 09:25 | NUR ---
Patient up in bed, tolerated breakfast, no bloody diarrhoea noted, not in any distress
[2019-03-20 12:16] VITALS: BP 137/64
[2019-03-20] MEDS ORDERED: FLAGYL500 MG PO (15:41)
[2019-03-20] MEDS ORDERED: LEVAQUIN500 MG PO (15:41)
[2019-03-20 15:47] VITALS: BP 124/72
--- NOTE | 2019-03-20 16:34 | NUR ---
Dr Denise had rounds, patient discharged home, prescription given, IV canula removed with tip intact, no ss of infiltration noted, Tele box returned , patient denies any pain, not in any distress, daughter at bed side taking her home. Transported via wheelchair to [facility]
--- NOTE | 2019-03-21 04:03 | Discharge Summary ---
PRIMARY CARE PHYSICIAN: Dr. Valerie Weeks. FINAL DIAGNOSES: 1. Colitis. 2. Hypertension, uncontrolled. 3. Diabetes. 4. Dementia. 5. History of breast cancer. 6. Dyslipidemia. CONSULTANTS: None. PROCEDURES: None. HISTORY: Per HPI. HOSPITAL COURSE: This is an 84-year-old woman with past medical history of dementia, high blood pressure, diabetes, dyslipidemia, and breast CA, who presented with abdominal pain with diarrhea. CT of abdomen and pelvis showed thickness, collapsed descending colon was suggestive of mural thickening. Colitis could not be ruled out. Mild burden of diverticulitis. No bowel obstruction noted. Chest x-ray was unremarkable. Labs were insignificant. She remained afebrile, was started on vancomycin p.o. and Levaquin IV. Stool for C. diff was negative, so vancomycin was discontinued. Blood culture is negative. Today, diarrhea has resolved, tolerating her diet, vital signs stable and afebrile. No abdominal pain. We will discharge home on p.o. Flagyl and Levaquin to complete the 10 days of therapy. PHYSICAL EXAMINATION: VITAL SIGNS: Temperature is 96.9, pulse is 65, respirations 16, blood pressure 137/64, and pulse ox is 98% on room air. GENERAL: In no acute distress. HEENT: Normocephalic and atraumatic. LUNGS: Clear to auscultation. HEART: Regular rate and rhythm. GI: Soft and nontender. NEUROLOGIC: Alert, awake, and oriented 1-2, baseline dementia. MUSCULOSKELETAL: Moves all extremities. Skin: Dry and intact. CONDITION AT DISCHARGE: Improved. DISCHARGE MEDICATIONS: See medication reconciliation list. FOLLOWUP: Follow up with PCP in 1 to 2 weeks. TIME SPENT: Total time of discharge is 35 minutes. Dictated by DIVYA Alvarado Francine Denise MD MY/MODL /[id number] cc: Valerie Weeks MD Seen and examined on 03/20/2019, updated the two daughters at the bedside. Agree with the findings and plan as documented by DIVYA Mckeon. [facility]
== END 2019-03-20 16:27 | disposition home or self-care (01) ==
LOC: FSED 16:50 → ERHOLD 19:07 → MED/SURG3 20:17
PROVIDERS: ADMIT Internal Medicine; ATTEND Internal Medicine
DX: K52.9 Noninfective gastroenteritis and colitis, unspecified (principal); I10 Essential (primary) hypertension; E11.9 Type 2 diabetes mellitus without complications; F03.90 Unspecified dementia, unspecified severity, without behavioral disturbance, psychotic disturbance, mood disturbance, and anxiety; E78.5 Hyperlipidemia, unspecified; Z85.3 Personal history of malignant neoplasm of breast; Z90.13 Acquired absence of bilateral breasts and nipples
CPT/HCPCS: 36415 ×3; 71045; 74176; 80048; 80053; 80076; 81003; 82150; 82553; 82948 ×3; 83605 ×2; 83690; 84484; 85025 ×2; 87040 ×2; 87400; 87493; 93005; 96361; 96374; 97116 ×2; 97139 ×2; 97162; 99284; C9113; G0378 ×3; J1817; J1956; J2405 ×2; J7030 ×2